=== PATIENT | male | born 1985 | race American Indian/Alaskan Native ===

== ENCOUNTER 2018-03-24 19:02 | Emergency (ER) | payer SELFPAY ==
[2018-03-24 19:46] VITALS: BP 110/60
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
[2018-03-24] MEDS ORDERED: MOTRIN PO ONE (22:22)
== END 2018-03-24 22:25 | disposition home or self-care (01) ==
LOC: ED 19:02
DX: S63.91XA Sprain of unspecified part of right wrist and hand, initial encounter (principal); F17.200 Nicotine dependence, unspecified, uncomplicated; Y04.8XXA Assault by other bodily force, initial encounter; Y93.89 Activity, other specified; Y99.8 Other external cause status; Y92.89 Other specified places as the place of occurrence of the external cause
CPT/HCPCS: 99283

== ENCOUNTER 2018-05-04 18:52 | Emergency (ER) | payer SELFPAY ==
[2018-05-04] MEDS ORDERED: TYLENOL ONE (19:11)
[2018-05-04 19:13] VITALS: BP 141/91
[2018-05-04] MEDS ORDERED: TYLENOL PO ONE (19:14)
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
== END 2018-05-04 22:10 | disposition home or self-care (01) ==
LOC: ED 18:52
DX: S30.860A Insect bite (nonvenomous) of lower back and pelvis, initial encounter (principal); K64.9 Unspecified hemorrhoids; F17.200 Nicotine dependence, unspecified, uncomplicated; W57.XXXA Bitten or stung by nonvenomous insect and other nonvenomous arthropods, initial encounter; Y93.89 Activity, other specified; Y92.89 Other specified places as the place of occurrence of the external cause; Y99.8 Other external cause status
CPT/HCPCS: 36415; 87476; 99283